=== PATIENT | female | born 1955 | race Caucasian/White ===

== ENCOUNTER 2017-04-23 15:12 | Emergency (ER) | payer SELFPAY ==
[~2017-04-23] VITALS: Ht 154.9 cm; Wt 70.0 kg
[~2017-04-23 15:12] MED LIST: CIPROFLOXACN500 MG PO; INVANZ1 GM IJ
[2017-04-23 16:29] LABS: INFLUENZA A POSITIVE (NONE DETECT); INFLUENZA B NONE DETECTED (NONE DETECT)
[2017-04-23 16:39] VITALS: BP 120/85
[2017-04-23] MEDS ORDERED: ROBITUSSIN AC10 ML PO (16:55)
[2017-04-23] MEDS ORDERED: TAM75CAP PO (16:55)
== END 2017-04-23 17:02 | disposition home or self-care (01) | DRG 153 ==
LOC: ED 15:12
PROVIDERS: Emergency Medicine
DX: J11.1 Influenza due to unidentified influenza virus with other respiratory manifestations (principal); R05 Cough; R50.9 Fever, unspecified